=== PATIENT | male | born 1945 | race Caucasian/White ===

== ENCOUNTER → 2020-10-07 | Outpatient (CLI) | payer MEDICARE, OTHER ==
[~2020-10-07] MED LIST: AMLODIPINE BESYL5 MG PO; ASPIR 8181 MG PO; AUGMENTIN 500-1 EACH PO; CARDURA 2MG TAB2 MG PO; CATAPRES 0.1MG0.1 MG PO; CLONIDINE HCL0.3 MG PO; CORDARONE 200M200 MG PO; COUMADIN 5MG TAB5 MG PO; COUMADIN4 MG PO; COUMADIN5 MG PO; CRANBERRY500 MG PO; DECONEX DMX 171 EAC1 PO; DOXAZOSIN MESYLA8 MG PO; FENOFIBRATE160 MG PO; FEOSOL325 MG PO; FISH OIL 1,2001 EACH PO; GLUCOTROL5 MG PO; IBUPROFEN800 MG PO; JARDIANCE25 MG PO; LASIX TAB 20 MG20 MG PO; LASIX40 MG PO; LEVAQUIN500 MG PO; LEVOTHYROXINE75 MCG PO; LOPRESSOR50 MG PO; NEURONTIN 100100 MG PO; PRAVACHOL40 MG PO; RESTORIL15 MG PO; ROCEPHIN 2 GM AD2 GM IV; SYNTHROID25 MCG PO; TYLENOL PM EX-1 EACH PO; VITAMIN B-121000 MCG PO; VITAMIN C 500500 MG PO; VITAMIN D35000 UNI1 PO
== END ==
LOC: KOH-I 10-03 13:30
DX: C34.12 Malignant neoplasm of upper lobe, left bronchus or lung (principal)
CPT/HCPCS: 71250

== ENCOUNTER 2021-03-03 21:07 | Emergency (ER) | payer MEDICARE, OTHER ==
[~2021-03-03 21:07] MED LIST changes: -IBUPROFEN800 MG PO
[2021-03-03 23:03] LABS: HEMOGLOBIN 12.8 gm/dl (14.0-17.5); RED BLOOD COUNT 4.28 M/UL (4.20-5.50); WHITE BLOOD COUNT 7.6 K/UL (4.5-11.0)
[2021-03-04] MEDS ORDERED: IBUPROFEN800 MG PO (02:55)
== END 2021-03-04 03:02 | disposition home or self-care (01) ==
LOC: ER1 21:07
PROVIDERS: Physician Assistant Medical
DX: M70.22 Olecranon bursitis, left elbow (principal); I48.91 Unspecified atrial fibrillation; Z85.118 Personal history of other malignant neoplasm of bronchus and lung
CPT/HCPCS: 73080; 80053; 85025; 85652; 86140; 99283

== ENCOUNTER 2021-06-08 19:00 | Emergency (ER) | payer MEDICARE, OTHER ==
[~2021-06-08] VITALS: Ht 165.1 cm; Wt 111.6 kg
[~2021-06-08 19:00] MED LIST changes: +IBUPROFEN800 MG PO
== END 2021-06-08 21:30 | disposition home or self-care (01) ==
LOC: ER1 19:00
DX: U07.1 COVID-19 (principal); I25.10 Atherosclerotic heart disease of native coronary artery without angina pectoris; E11.9 Type 2 diabetes mellitus without complications; Z23 Encounter for immunization
CPT/HCPCS: 99283; M0243

== ENCOUNTER → 2021-07-26 | Outpatient (CLI) | payer MEDICARE, OTHER | LOC: KOH-I 12:39 | DX: Z12.89 Encounter for screening for malignant neoplasm of other sites (principal); Z51.11 Encounter for antineoplastic chemotherapy; C34.12 Malignant neoplasm of upper lobe, left bronchus or lung; Z71.2 Person consulting for explanation of examination or test findings; N28.1 Cyst of kidney, acquired | CPT/HCPCS: 71250; 76775 ==

== ENCOUNTER 2021-09-28 19:45 | Emergency (ER) | payer MEDICARE, OTHER | END 2021-09-29 04:15 | disposition home or self-care (01) | LOC: ER1 19:45 | DX: S61.223A Laceration with foreign body of left middle finger without damage to nail, initial encounter (principal); S01.21XA Laceration without foreign body of nose, initial encounter; S61.219A Laceration without foreign body of unspecified finger without damage to nail, initial encounter; I13.2 Hypertensive heart and chronic kidney disease with heart failure and with stage 5 chronic kidney disease, or end stage renal disease; Z23 Encounter for immunization; I50.9 Heart failure, unspecified; E11.9 Type 2 diabetes mellitus without complications; Z79.84 Long term (current) use of oral hypoglycemic drugs; N18.5 Chronic kidney disease, stage 5; F17.210 Nicotine dependence, cigarettes, uncomplicated; W19.XXXA Unspecified fall, initial encounter | CPT/HCPCS: 12001; 12011; 12032; 70450; 72125; 73120; 73562; 90471; 90715; 99284 ==

== ENCOUNTER → 2022-02-01 | Outpatient (CLI) | payer MEDICARE, OTHER | LOC: KOH-I 11:20 | DX: C34.12 Malignant neoplasm of upper lobe, left bronchus or lung (principal); Z12.89 Encounter for screening for malignant neoplasm of other sites; Z71.2 Person consulting for explanation of examination or test findings | CPT/HCPCS: 71250 ==

== ENCOUNTER 2022-03-15 12:36 | Emergency (ER) | payer MEDICARE, OTHER ==
[2022-03-15 14:51] LABS: HEMOGLOBIN 11.8 gm/dl (14.0-17.5); RED BLOOD COUNT 4.03 M/UL (4.20-5.50); WHITE BLOOD COUNT 11.4 K/UL (4.5-11.0)
[2022-03-15] MEDS ORDERED: VOLTAREN ARTHRI20 GM TP (17:34)
[2022-03-15] MEDS ORDERED: COLCRYS0.6 MG PO (17:34)
== END 2022-03-15 17:17 | disposition home or self-care (01) ==
LOC: ER1 12:36
PROVIDERS: Physician Assistant Medical
DX: M25.522 Pain in left elbow (principal); R05.9 Cough, unspecified; R19.7 Diarrhea, unspecified; R42 Dizziness and giddiness; E78.5 Hyperlipidemia, unspecified; E11.22 Type 2 diabetes mellitus with diabetic chronic kidney disease; I12.9 Hypertensive chronic kidney disease with stage 1 through stage 4 chronic kidney disease, or unspecified chronic kidney disease; N18.9 Chronic kidney disease, unspecified; I48.91 Unspecified atrial fibrillation; Z90.49 Acquired absence of other specified parts of digestive tract; Z85.820 Personal history of malignant melanoma of skin; Z95.0 Presence of cardiac pacemaker; Z87.891 Personal history of nicotine dependence
CPT/HCPCS: 73080; 80053; 84550; 85025; 85652; 86140; 96374; 99283; J2930